=== PATIENT | female | born 1990 | race Two or more races ===

== ENCOUNTER 2016-08-10 20:33 | Emergency (ER) | payer MEDICAID, OTHER ==
[2016-08-10] MEDS ORDERED: MORPHINE SULFATE 4 MG/ML SYRINGE ONE (21:32)
[2016-08-10] MEDS ORDERED: ONDANSETRON 4 MG/2ML 2 ML VIAL ONE (21:32)
[2016-08-10 21:56] LABS: ABSOLUTE NEUTROPHIL COUNT 10.6 K/mm3 (1.8-7.7); BASO % 0.2 % (0.2-1.0); EOS % 0.2 % (0.9-2.9); HEMATOCRIT 38.4 % (37.0-47.0); HEMOGLOBIN 12.1 gm/l (12.0-16.0); IMM NEUT% 0.3 % (0-1); LYMPH # 2.1 (1.0-4.8); LYMPH % 15.9 % (15-45); MEAN CORPUSCULAR HGB CONC 31.5 g/dl (33.0-37.0); MEAN PLATELET VOLUME 10.5 fl (7.4-10.4); MONO # 0.5 (0.0-0.8); MONO % 3.6 % (4-12); NEUT % 79.8 % (43-75); PLATELET COUNT 271 K/mm3 (130-400); RED CELL DISTRIBUTION WIDTH 13.7 % (11.5-14.5)
[2016-08-10 22:06] LABS: CALCIUM 10.5 mg/dL (8.6-10.3)
[2016-08-10] MEDS ORDERED: LACTATED RINGERS 1,000 ML ONE (22:59)
[2016-08-10 23:14] LABS: SPECIFIC GRAVITY 1.025 (1.001-1.030); URINE BILIRUBIN NEGATIVE (NEGATIVE); URINE BLOOD NEGATIVE (NEGATIVE); URINE GLUCOSE (UA) NEGATIVE (NEGATIVE); URINE LEUKOCYTE ESTERASE 1+ (NEGATIVE); URINE NITRITE NEGATIVE (NEGATIVE); URINE PROTEIN NEGATIVE (NEGATIVE); URINE UROBILINOGEN NORMAL (0-1 mg/dl)
[2016-08-10 23:35] LABS: HCG,QUALITATIVE URINE NEGATIVE
[2016-08-10 23:47] LABS: URINE APPEARANCE CLEAR; URINE COLOR YELLOW
[2016-08-11 00:05] LABS: URINE RBC 0 /hpf
[2016-08-11 00:06] LABS: URINE AMORPHOUS SEDIMENT FEW; URINE BACTERIA 1+
--- NOTE | 2016-08-11 06:08 | US ---
EXAMINATION: Limited gallbladder ultrasound examination was performed. CLINICAL INDICATION: Right upper quadrant pain. COMPARISON: None FINDINGS: Gallbladder: 9.2 cm in length Cholelithiasis: Present. 3 echogenic mobile foci are noted. The largest is 7 mm in size. Gallbladder wall thickness: 2 millimeters. Pericholecystic fluid: Absent Common bile duct:Not dilated and measures 3 millimeters. Sonographic Hernández's sign: None elicited. Patient is on pain medication. IMPRESSION: Cholelithiasis currently without evidence of acute cholecystitis or biliary obstruction.
== END 2016-08-11 00:11 | disposition home or self-care (01) ==
LOC: ED 20:33
DX: R10.11 Right upper quadrant pain (principal); K80.80 Other cholelithiasis without obstruction; J45.909 Unspecified asthma, uncomplicated
CPT/HCPCS: 83690; 81025; 85025; 87086; 80053; 81001; 76705; 96375; 99284; 96374; 96361; 99283; J2270; J2405; J7120